=== PATIENT | female | born 1955 | race African-American/Black ===

== ENCOUNTER 2025-01-02 11:07 | Outpatient (AMB) | payer OTHER, SELFPAY ==
--- NOTE | 2025-01-02 11:09 | A.OFFVIS_ITS ---
Intake Visit Reasons: recurrent syncope Allergies codeine (CODEINE) Allergy (Unknown, Unverified 11/02/19 17:17) UNKNOWN Medication List - Last Reconciled 01/02/25 by Karen Collado MD atorvastatin 20 mg PO DAILY diltiazem HCl CD 120 mg PO DAILY fluticasone furoate-vilanterol 200-25 mcg/dose (Breo Ellipta) 1 ea inhalation DAILY losartan 100 mg PO DAILY metformin ER 1,000 mg PO BID ondansetron HCl 4 mg PO DAILY sitagliptin phosphate (Januvia) 50 mg PO DAILY HPI Comments Details: Recovering from bacterial pneumonia started 3-4 weeks back. Completing antibiotic course. No further syncopal episodes. She had 2 syncopal episodes on 05/09/24 . She had some diarrhea and vomited and felt very weak. Was [place] [facility] . Potassium was very low.? . CT and EEG were normal . Echo was normal. Has a 30 day cardiac event monitor. She had a previous syncopal episode in spring and September 2023? and also in 2012, when she was in [place]. She apparently passed out followed by a prolonged period of several hours where she was only speaking gibberish. She was given TNK in [place] and was hospitalized for a week, but all of her workup was negative. The second major episode occurred on 10/16/23 when she was admitted to [facility]. She was somewhat stressed in her islam situation and suddenly felt funny sensation in her stomach. She became sweaty and hot, went and washed her face came back was not feeling well and sat on a stool and apparently keeled over and passed out for a minute. She knew where she was and she could hear people but then when she talked she was only talking gibberish. She was taken to the hospital where her CAT scan, MRI and CTAs were all negative. The speech problem of not being able to talk clearly lasted about 45 min. She's had a few other minor's episodes where she has felt weak and sweaty and some issues with his stomach and without loss of consciousness. She was put on Keppra 750 mg twice a day for a month and then she stopped it as she was not feeling good with it. [facility] Medical History (Updated 01/02/25 @ 11:16 by Karen Collado MD) Stress Anxiety Syncopal episodes Asthma HLD (hyperlipidemia) Hypertension Type 2 diabetes mellitus Seizure disorder Social History (Updated 08/21/24 @ 19:07 by Susan Bey MA) Patient Tobacco Use Status: Never used Tobacco Review of Systems Const Details: ?Sleep:? Difficulty getting to sleepdenies.? Difficulty maintaining sleepadmits.? Urge to move legsdenies.? Teeth grindingadmits.? Shouting or Kicking during sleep denies.? Abnormal behavior during sleepdenies.? Excessive sleepdenies.? Snoring admits.? Daytime sleepinessdenies. ???General/Constitutional:? Change in appetitedenies.? Chillsdenies.? Fatiguedenies.? Feverdenies.? Weight gaindenies.? Weight lossadmits. ???Ophthalmologic:? Blurred visiondenies.? Diminished visual acuitydenies. ???ENT:? Stuffinessadmits.? Decreased hearingdenies.? Dry mouthdenies.? Ear painadmits.? Nosebleeddenies.? Ringing in the earsdenies.? Sinus painadmits.? Sore throat denies.? Swollen glandsdenies. ???Endocrine:? Cold intolerancedenies.? Excessive thirstdenies.? Frequent urinationdenies.? Heat intolerancedenies. ???Respiratory:? Shortness of breathdenies.? Chest paindenies.? Coughadmits. ???Breast:? Breast lumpdenies.? Nipple dischargedenies. ???Cardiovascular:? Chest pain at restdenies.? Chest pain with exertiondenies.? Claudicationdenies .? Dizzinessdenies.? Fluid accumulation in the legsdenies.? Irregular heartbeat denies.? Palpitationsdenies. ???Gastrointestinal:? Abdominal paindenies.? Constipationdenies.? Diarrheadenies.? Difficulty swallowingdenies.? Heartburndenies.? Nauseadenies.? Rectal bleedingdenies. ???Hematology:? Easy bruisingadmits.? Prolonged bleedingdenies. ???Genitourinary:? Frequent urinationadmits.? Urgencydenies.? Incontinencedenies.? Erectile Dysfunctiondenies. ???Musculoskeletal:? Neck painadmits.? Back paindenies.? Muscle achesadmits.? Painful jointsadmits.? Sciaticadenies.? Weaknessdenies. ???Podiatric:? Difficulty walkingdenies.? Foot numbnessdenies. ???Neurologic:? Difficulty swallowingdenies.? Balance difficultydenies.? Coordinationnormal.? Difficulty speakingadmits.? Dizzinessadmits.? Faintingadmits.? Gait abnormality admits.? Headachedenies.? Loss of strengthdenies.? Loss of use of extremity denies.? Low back paindenies.? Memory lossdenies.? Seizures?.? Ticsdenies.? Tingling/Numbnessdenies.? Transient loss of visiondenies.? Tremordenies. ???Psychiatric:? Anxietyadmits.? Auditory/visual hallucinationsdenies.? Delusionsdenies.? Depressed mooddenies.? Stressorsadmits.? Substance abusedenies.? Suicidal thoughtsdenies. Physical Exam Neuro Other: Neurological: Abnormal neurological findings:??none.?Mental Status:??alert and oriented X 3,?Normal attention, orientation, memory and affect.?Cranial Nerves:??Pupils are equal, round and reactive to light. Fundoscopy shows normal disc bilaterally. External occular muscles are intact. Visual pink are full, no ptosis. Face is symmetrical, no facial weakness or droop. Facial sensations are normal. Tongue protrudes in midline. Palate elevates symmetrically. Shoulder shrugging is normal..?Motor Examination:??Normal muscle tone, bulk and strength,?No atrophy or fasciculations,?No drift of the extended upper extremities,?Deep tendon reflexes are 2+?,?Plantars are flexor?.?Straight Leg Raising:??90 degrees.?Sensory Exam:??Normal light touch, temperature, pinprick, vibration and joint-position sensations?,?Rhomberg sign is absent.?Coordination:??no ataxia,?no titubation,?mpwewu-ga-[id number], fozw-qcbj-amzo test and rapid alternating movements were normal.?Gait Exam:??Within normal limits.?Cerebellar Signs:??Aasdxm-fw-mftd and kudh-fc-tfge is normal,?no dysdiadochoki nesia?.?Extrapyramidal System:??No tremor, rigidity with normal facial expressions,?No bradykinesia, no bradyphrenia. Normal arm swing and posture. No propulsion or retropulsion.?Speech:??Normal,?no dysphasia or dysarthria..? Mini Mental Status Exam: Level of Consciousness:??Alert.?Orientation:??Knows correct year, month, date, day and season,?Knows correct city, county and state. Knows correct location and floor.?Registration:??Able to register 3 objects.?Attention:??Serial 7's performed accurately.?Recall:??Able to recall 3 out of 3 objects.?Language:??Normal spontaneous speech, fluency, repetition,naming, comprehension, reading and writing.?Total Score:??30/30.? Assessment & Plan Assessment & Plan (1) Syncopal episodes: Comment: Question of pseudoseizures and with prolonged difficulty talking under situations of stress but negative workup 12/30/23 EEG- WNL. 01/05/24 48-hr ambulatory EEG normal. Code(s): R55 - Syncope and collapse Category: Medical Plan Check BP and sugar when she feels presyncopal Coding Level of Care Code Est Pt Level 4 (58371) Diagnoses Syncopal episodes R55
== END 2025-01-02 11:38 | disposition home or self-care (01) ==
LOC: HO.HSM 11:07
PROVIDERS: PCP Internal Medicine; Visit Provider Psychiatry & Neurology Neurology
DX: R55 Syncope and collapse (principal)
CPT/HCPCS: 99214